=== PATIENT | female | born 2000 | race Caucasian/White ===

== ENCOUNTER 2023-03-02 21:18 | Emergency (ER) | payer OTHER, BC, SELFPAY ==
[2023-03-02 21:21] VITALS: BP 154/117; PULSE 111; RESP 18; TEMP 36.9; O2SAT 97
--- NOTE | 2023-03-02 22:28 | EX.ED.VIS.PS ---
HPI HPI - Psych History of Present Illness Chief Complaint: Suicidal Detail of Chief Complaint: Ingested a bottle of Zoloft. Informant: patient and parent Onset/Context/Timing Onset: Today and Days Context: Sudden Onset Timing: Continuous Current Severity: Moderate Maximum Severity: Moderate Associated Symptoms Associated Symptoms - Psych: Positive for Depressed Narrative Narrative: 23-year-old female history of depression mood swings for which she is on Zoloft. Tonrani ingested a bottle of Zoloft around 8:20 PM. She believes there was around 45 in the bottle. She denies any prior history of any other suicide attempts. Denies any other substances ingested other than some alcohol tonrani. Said she did make herself throw up twice after she did it. Called her mom and was brought to the emergency department. She denies prior suicide attempts or mental health admissions. Prior similar symptoms: No Recent Illness/Hospitalization: No PFSH PFSH Medical History Anxiety Depression Home Medications sertraline 100 mg tablet (Zoloft) 100 mg PO DAILY 03/02/23 [History Last Taken Unknown] Allergy/AdvReac Type Severity Reaction Status Date / Time No Known Allergies Allergy Verified 03/02/23 21:21 Social History Smoking Status: Never smoker ROS ROS ED ROS Narrative Denies recent illness. Review of Systems ROS Unobtainable: Denies due to encephalopathy Constitutional Constitutional ED: Denies chills or fever(s) Eyes Eyes: Denies blurry vision ENT ENT ED: Denies ear pain Cardiovascular Cardiovascular: Denies chest pain Respiratory/Chest Respiratory/Chest: Denies cough or dyspnea Gastrointestinal Gastrointestinal: Reports vomiting; Denies abdominal pain, constipation, diarrhea or melena Genitourinary Genitourinary ED: Denies dysuria or hematuria Musculoskeletal Musculoskeletal: Denies arthralgias Integumentary Denies abscess Neurologic Neurologic: Denies headache(s) Psychiatric Psychiatric: Reports anxiety and depression Endocrine Endocrinology: Denies polydipsia Hematologic/Lymphatic Hematologic/Lymphatic: Denies easy bleeding Allergic/Immunologic Allergic/Immunologic ED: Denies mouth swelling or tongue swelling EXAM Physical Exam Narrative Exam Narrative: Well-appearing 23-year-old female. Vital signs stable afebrile. H EENT exam unremarkable. Neck nontender no trauma. Lungs clear to auscultation bilaterally. Heart regular rhythm rate about 110 no murmur. Chest were nontender. Abdomen soft nontender. Moving all 4 extremities. No track miles. No trauma. Back nontender. Neurologically she is awake and alert. Makes good eye contact. Follows commands. She is calm at this time. Mom is sitting at bedside. Const Vital Signs: 03/02/23 21:21 03/03/23 05:32 Temperature 98.4 F Temperature Source Temporal Pulse Rate 111 H 72 Respiratory Rate 18 17 Blood Pressure 154/117 H 132/83 H Blood Pressure Mean 129 99 Pulse Ox 97 96 Oxygen Delivery Method Room Air Room Air Positive well nourished and well developed; Negative for cachectic, contractures or unkempt General Appearance ED: well developed and NAD; Negative for unkempt, cachectic, contractures or pallor Nutritional Appearance: Negative for cachectic HEENT Reports moist mucous membranes normocephalic and atraumatic; Negative for trauma or tenderness Eyes PERRL and EOMs intact bilaterally General Eye ED: Negative for pale conjunctiva or scleral icterus Neck no lymphadenopathy, supple and no JVD General: Negative for tenderness Resp normal respiratory effort and clear to auscultation bilaterally Effort and Inspection: Negative for retractions Auscultation: Negative for rales, rhonchi, wheezes or diminished lung sounds Cardio S1 normal heart sound, S2 normal heart sound and no murmurs Palpation: Negative for other Rate: tachycardic; Negative for regular rate Rhythm: regular rhythm GI non-tender, non-distended and no masses Inspection: Negative for abdominal distention Auscultation: normoactive bowel sounds Palpation: soft; Negative for tender or guarding Back/Spine no CVA tenderness General Back: Negative for CVA tenderness Cervical Spine: Negative for cervical spine tenderness Thoracic Spine / Upper Back: Negative for thoracic spinal tenderness Lumbar Spine / Lower Back: Negative for lumbar spinal tenderness Extremity normal to inspection General Extremety ED: Negative for edema or tenderness General Extremity: Negative for edema Neuro oriented x3, CN's II-XII intact bilaterally and no sensory deficits noted Sensorium / Orientation: alert, oriented to person, oriented to place and oriented to time; Negative for orientation impaired, confused, lethargic or stuporous Motor Exam: strength 5/5 throughout Psych mental status grossly normal, cooperative, affect normal, speech normal, activity/motor behavior normal and denies hallucinations; Negative for denies suicidal ideation Appearance: grossly normal, appropriate and well kempt; Negative for unkempt, disheveled, bizarre or intubated Attitude: calm, engaged, No paranoid, No withdrawn, No bizarre and No uncooperative Activity / Motor Behavior: appropriate eye contact Speech: normal speech, No incoherent, No excessive and No minimal Mood & Affect: depressed Thought Process: normal thought process Thought Content: suicidality Attention / Concentration: attention grossly intact Memory / Cognition: memory grossly intact Insight: insight good Judgement: fair Skin General Skin Exam: Negative for jaundice or pallor Lesions: no lesions Rashes: no rashes Trauma: Negative for abrasion Wounds: Negative for amputation MDM MDM MDM Narrative Medical decision making narrative: 23-year-old with suicide attempt by overdose of Zoloft tonight around 8:20 PM. Currently is awake and alert. ED mental health evaluation. ED mental health screening labs. Patient doing well at 11:42 PM. Awaiting crisis evaluation. History & Record Review Discussion w/independent historian: Patient Lab Data Attestation: I reviewed the patient's lab results. Lab results narrative: CBC unremarkable. White count of 9. H&H 14 and 41. Platelets 294. Electrolytes show a gap of 8. Normal BUN and creatinine. Glucose is 90. Serum test negative. Tox screen negative. Alcohol negative. Tylenol level negative. Labs: Laboratory Results - last 24 hr 03/02/23 22:16 WBC 9.1 RBC 4.88 Hgb 14.1 Hct 41.7 MCV 85.5 MCH 28.9 MCHC 33.8 RDW Std Deviation 42.0 RDW Coeff of Lynne 13.4 Plt Count 294 MPV 10.3 Immature Gran % (Auto) 0.300 Neut % (Auto) 64.9 Lymph % (Auto) 26.1 Jasper % (Auto) 7.1 Eos % (Auto) 1.3 Baso % (Auto) 0.3 Absolute Neuts (auto) 5.9 Absolute Lymphs (auto) 2.38 Nucleated RBC % 0 Sodium 137 Potassium 3.6 Chloride 107 Carbon Dioxide 22.0 Anion Gap 8 BUN 10 Creatinine 0.89 Est GFR (MDRD) Af Amer 101 Est GFR (MDRD) Non-Af 84 BUN/Creatinine Ratio 11.3 Glucose 90 Calcium 9.7 Serum , Qual NEGATIVE Urine Opiates Screen NEGATIVE Urine Methadone Screen NEGATIVE Acetaminophen < 2.0 L Ur Barbiturates Screen NEGATIVE Ur Phencyclidine Scrn NEGATIVE Ur Amphetamines Screen NEGATIVE MDMA (Ecstasy) Screen NEGATIVE U Benzodiazepines Scrn NEGATIVE Urine Cocaine Screen NEGATIVE U Cannabinoids Screen NEGATIVE Ur Drug Screen Comment Ethyl Alcohol < 3.0 Rhythm Strip Rhythm Strip: Sinus Rhythm Rate: 78 Ectopy: None and - (Mental health receiving facility requested an EKG be done.) EKG Initial EKG: Attestation: I personally reviewed and interpreted this EKG as follows: Interpretation: Sinus Rhythm and No Acute Injury Pattern Comments: Normal sinus rhythm rate of 78 no acute signs of [place] nor ischemia nor dysrhythmia. Normal. Discharge Plan Triage Chief Complaint: Suicidal ED Provider: Chandan Abreu Dx/Rx/DC Orders Clinical Impression: Depression with suicidal ideation, Depression, Overdose Prescriptions: No Action sertraline [Zoloft] 100 mg tablet 100 mg PO DAILY Primary Care Provider: Dhara Carrasquillo Referrals: Dhara Carrasquillo MD [Primary Care Provider] - Disposition Disposition: Psychiatric Hospital or Unit
[2023-03-02 22:36] LABS: Absolute Lymphocyte Count 2.38 X10^3/uL (0.83-4.51); Absolute Neutrophil Count 5.9 X10^3/uL (2.0-7.7); Basophil# 0.03 X10^3/uL; Basophil% 0.3 % (0-1); Eosinophil# 0.12 X10^3/uL; Eosinophils% 1.3 % (0-5); Hematocrit 41.7 % (37-47); Hemoglobin 14.1 g/dL (12.0-15.0); Lymphocyte # 2.38 X10^3/ul (0.83-4.51); Lymphocyte % 26.1 % (19-41); Mean Corp Hgb Conc 33.8 g/dL (32-36); Mean Corpuscular Hgb 28.9 pg (27.0-32.0); Mean Corpuscular Volume 85.5 fL (81-99); Mean Platelet Vol. 10.3 fl (6.2-12.0); Monocyte# 0.65 X10^3/uL; Monocyte% 7.1 % (0-10); NRBC Flagged by Analyzer 0 % (0-5); Neutrophil # 5.91 X10^3/uL (2.7-7.7); Neutrophil % 64.9 % (47-70); Platelet Count 294 K/mm3 (150-450); RBC Distribution Width CV 13.4 % (11.6-14.6); Red Blood Count 4.88 M/mm3 (4.2-5.4); White Blood Count 9.1 K/mm3 (4.4-11.0)
[2023-03-02 22:55] LABS: Anion Gap 8 (5-15); BUN 10 mg/dL (7-18); BUN/Creat Ratio 11.3 RATIO (10-20); Calcium,Total 9.7 mg/dL (8.5-10.1); Chloride 107 mmol/L (98-107); Creatinine, Serum 0.89 mg/dL (0.55-1.02); EST Glomerular Filtration Rate 84 mL/min (>60); Est Glom Filt Rate - Afr Amer 101 mL/min (>60); Glucose 90 mg/dL (74-106); Potassium 3.6 mmol/L (3.5-5.1); Sodium Level 137 mmol/L (136-145)
[2023-03-02 22:56] LABS: Amphetamine Urine VISTA NEGATIVE (<1000 ng/mL); Barbiturate Urine VISTA NEGATIVE (< 200 ng/mL); Benzodiazepine Urine VISTA NEGATIVE (< 200 ng/mL); Cocaine Urine VISTA NEGATIVE (< 300 ng/mL); Ecstacy Urine VISTA NEGATIVE (< 500 ng/mL); Methadone Urine VISTA NEGATIVE (< 300 ng/mL); PCP Urine VISTA NEGATIVE (< 25 ng/mL); THC Urine VISTA NEGATIVE (< 50 ng/mL); Vista UDS pH Range 4
[2023-03-02 23:05] LABS: Alcohol, Blood (Medical)-Serum < 3.0 mg/dL
[2023-03-02 23:11] LABS: Internal QC Validated? YES +Cl - CLEAR BKGD; Pregnancy, Serum, hCG Quali. NEGATIVE Negative
[2023-03-02 23:12] LABS: Acetaminophen (Tylenol) Level < 2.0 ug/mL (10.0-30.0)
--- NOTE | 2023-03-03 05:26 | ED.RN ---
See downtime charting for medication administration and RN notes
--- NOTE | 2023-03-03 05:27 | EKG12_ITS ---
[place] Reason : [facility] [place] : / mmHG Vent. Rate : 078 BPM Atrial Rate : 078 BPM P-R Int : 138 ms QRS Dur : 078 ms QT Int : 392 ms P-R-T Axes : 062 012 010 degrees QTc Int : 446 ms Normal sinus rhythm Normal ECG Confirmed by PARISH SALAZAR, DAVID ([id number]), image editor LING WILDER ([id number]) on 03/03/2023 1:23:31 PM Referred By: Brady Confirmed By:DAVID LUGO MD
[2023-03-03 05:32] VITALS: BP 132/83; PULSE 72; RESP 17; O2SAT 96
--- NOTE | 2023-03-03 08:27 | NURSING ---
FAXED COVID, ETOH, PREG, AND EKG TO [facility]
[2023-03-03 08:52] VITALS: BP 126/75; PULSE 79; RESP 18; O2SAT 99
[2023-03-03 10:00] VITALS: BMI 38.3
--- NOTE | 2023-03-03 10:08 | ED.RN ---
[facility] REQUESTED POISON CONTROL BE CONSULTED ON PATIENT. THIS RN CALLED POISON CONTROL AND THEY DID CONFIRM THEY WERE ALREADY CONSULTED 6 HOURS POST INGESTION. THIS RN CONFIRMED WITH POISON CONTROL THAT THERE HAVE BEEN NO MENTAL STATUS CHANGES, NO GI ISSUES, PT. EATING AND DRINKING. [facility] NOTIFIED.
--- NOTE | 2023-03-03 10:12 | NURSING ---
CALLED [facility], TALKED TO AGUSTIN. HE WILL RELAY MESSAGE TO ELLEN. NURSE CALLED POISON CONTROL DURING DOWN TIME AND MADE A NOTE. PATIENT IS ALSO 6 HOURS POST INGESTION AND MEDICALLY CLEARED.
--- NOTE | 2023-03-03 10:25 | NURSING ---
[facility] UNIT DR BRADSHAW NURSE TO NURSE [phone]
--- NOTE | 2023-03-03 10:32 | ED.RN ---
ATTEMPTED TO CALL REPORT TO [facility], NO ONE PICKED UP-VOICEMAIL LEFT.
--- NOTE | 2023-03-03 10:41 | NURSING ---
CALLED [facility], TALKED TO RUKHSANA. ETA IS 60 TO 90
--- NOTE | 2023-03-03 10:58 | ED.RN ---
REPORT CALLED TO [facility]
== END 2023-03-03 12:58 ==
PROVIDERS: Emergency Provider Emergency Medicine; PCP Pediatrics; Visit Provider Emergency Medicine
DX: T43.222A Poisoning by selective serotonin reuptake inhibitors, intentional self-harm, initial encounter (principal); R45.851 Suicidal ideations; F32.A Depression, unspecified; Z79.899 Other long term (current) drug therapy
CPT/HCPCS: 80048; 80307; 80329; 82077; 84703; 85025; 87428; 93005; 99284; G0480

== ENCOUNTER 2025-02-10 22:38 | Emergency (ER) | payer OTHER, SELFPAY ==
[2025-02-10 22:39] VITALS: BP 136/60; PULSE 84; RESP 18; TEMP 36.8; O2SAT 97; BMI 41.0
[2025-02-10 23:35] LABS: Hematocrit 36.6 % (37-47); Hemoglobin 12.3 g/dL (12.0-15.0); Immature Granulocytes Count 0.030 X10^3/uL (0.0-0.0); Mean Corp Hgb Conc 33.6 g/dL (32-36); Mean Corpuscular Volume 85.7 fL (81-99); Mean Platelet Vol. 10.6 fl (6.2-12.0); NRBC Flagged by Analyzer 0 % (0-5); Platelet Count 267 K/mm3 (150-450); RBC Distribution Width CV 13.3 % (11.6-14.6); RBC Distribution Width SD 41.4 fl (35.1-43.9); Red Blood Count 4.27 M/mm3 (4.2-5.4); White Blood Count 8.8 K/mm3 (4.4-11.0)
[2025-02-10 23:39] VITALS: BP 127/67; PULSE 78; O2SAT 98
[2025-02-11] VITALS: BP 134/71; PULSE 72; RESP 16; O2SAT 99
[2025-02-11 00:01] LABS: Anion Gap 12 (5-15); BUN 10 mg/dL (4-19); BUN/Creat Ratio 11.6 RATIO (10-20); Calcium,Total 9.3 mg/dL (7.6-11.0); Carbon Dioxide 22.3 mmol/L (21.0-32.0); Chloride 106 mmol/L (98-108); Estimated Creatinine Clearance 124.63 ml/min (50-250); Glucose 100 mg/dL (70-99); Potassium 3.8 mmol/L (3.3-5.1)
[2025-02-11 00:02] LABS: Alcohol, Blood (Medical)-Serum < 10.1 mg/dL (<=10.0)
[2025-02-11 00:44] LABS: Mucous, Urine 0 SEEN /hpf (<or=2+)
[2025-02-11 00:50] LABS: Color, Urine Yellow (Yellow); Glucose, Dipstick Normal (Normal); Ketone-Dipstick 5 mg/dl (Negative); Leukocyte Esterase-Dipstick 25 /ul (Negative); Nitrite-Dipstick Negative (Negative); Occult Blood-Urine 250 /ul (Negative); Protein-Dipstick 100 mg/dl (Negative); Specific Gravity, Urine 1.025 (1.002-1.030); Urine Bilirubin Dipstick Negative (Negative)
[2025-02-11 00:56] LABS: Internal QC Validated? YES +Cl - CLEAR BKGD; Pregnancy, Urine Negative Negative; Record Kit Lot#,Urine Preg 0000947241
[2025-02-11 00:58] LABS: Red Blood Cells-Urine 25-50 SEEN /hpf (0-5); Squamous Epithelial Cells - UA 10-25 SEEN /hpf (5-10)
[2025-02-11 01:00] VITALS: BP 125/73; PULSE 69; RESP 16; O2SAT 98
[2025-02-11 01:42] LABS: Barbiturate Urine NEGATIVE (< 200 ng/mL); Benzodiazepine Urine NEGATIVE (< 200 ng/mL); PCP Urine NEGATIVE (< 25 ng/mL); THC Urine PRESUMPTIVE POSITIVE (< 50 ng/mL)
[2025-02-11 09:38] VITALS: BP 134/78; PULSE 68; RESP 18; TEMP 36.6; O2SAT 99
== END 2025-02-11 09:41 ==
PROVIDERS: Emergency Provider Emergency Medicine; PCP Pediatrics; Visit Provider Emergency Medicine
DX: R44.0 Auditory hallucinations (principal); F31.9 Bipolar disorder, unspecified; V47.5XXA Car driver injured in collision with fixed or stationary object in traffic accident, initial encounter; F41.9 Anxiety disorder, unspecified; Z79.899 Other long term (current) drug therapy; F17.210 Nicotine dependence, cigarettes, uncomplicated; F17.290 Nicotine dependence, other tobacco product, uncomplicated
CPT/HCPCS: 70450; 72125; 73030; 80048; 80307; 81001; 81025; 82077; 85025; 99285; A4216